=== PATIENT | male | born 1995 | race Hispanic/Latino ===

== ENCOUNTER 2018-01-14 22:10 | Emergency (ER) | payer BC ==
[2018-01-14] MEDS ORDERED: LIDOCAINE HCL 2% VISCOUS 15 ML UDCUP ONE (22:30)
[2018-01-14] MEDS ORDERED: MAG HYDROX/AL HYDROX/SIMETH ES 30 ML SUSP UDCUP ONE (22:30)
[2018-01-14] MEDS ORDERED: ACETAMINOPHEN-CODEINE ELIXIR 5 ML UDCUP ONE (22:31)
[2018-01-14] MEDS ORDERED: ONDANSETRON ODT 4 MG TAB ONE (22:31)
== END 2018-01-14 23:07 | disposition home or self-care (01) ==
LOC: EDH 22:10
DX: A08.4 Viral intestinal infection, unspecified (principal)

== ENCOUNTER 2024-05-17 10:05 | Emergency (ER) | payer SELFPAY ==
[~2024-05-17] VITALS: Ht 172.7 cm; Wt 54.4 kg
[2024-05-17 11:10] LABS: RAPID GROUP A STREP negative (NEGATIVE)
[2024-05-17 11:26] LABS: INFLUENZA TYPE A Negative For Type A (NEGATIVE); INFLUENZA TYPE B Negative For Type B (NEGATIVE)
[2024-05-17] MEDS ORDERED: AZIT500T2 PO (12:34)
[2024-05-17] MEDS ORDERED: ALBUHFA IH (12:34)
[2024-05-17] MEDS ORDERED: BENZ-39 PO (12:34)
[2024-05-17 12:41] VITALS: BP 124/56; PULSE 54; RESP 20; O2SAT 98
== END 2024-05-17 12:43 | disposition home or self-care (01) ==
LOC: EDH 10:05
DX: J20.8 Acute bronchitis due to other specified organisms (principal); B96.89 Other specified bacterial agents as the cause of diseases classified elsewhere; Z20.822 Contact with and (suspected) exposure to COVID-19
CPT/HCPCS: 71045; 87426; 87804; 87880

== ENCOUNTER 2024-08-02 07:37 | Emergency (ER) | payer BC ==
[~2024-08-02] VITALS: Ht 172.7 cm; Wt 54.4 kg
[~2024-08-02 07:37] MED LIST: ALBUHFA IH; AZIT500T2 PO; BENZ-39 PO
[2024-08-02 08:25] LABS: SARS-CoV-2, RNA, NAAT NEGATIVE SARS CoV-2 (NEGATIVE)
[2024-08-02 08:30] LABS: INFLUENZA TYPE B Negative For Type B (NEGATIVE)
[2024-08-02 08:36] LABS: INFLUENZA TYPE A Positive For Type A (NEGATIVE)
--- NOTE | 2024-08-02 09:07 | ERN ---
ED Note History of Present Illness Stated Complaint: COUGH, HEADACHE, BODYACHE Chief Complaint: Flu Symptoms Time Seen by MD: 08:16 Dictation: 28-year-old male presents to the ED for evaluation of headache onset 1 day ago. Patient reports cough and body aches, but denies any other associated symptoms at this time. Allergies: Coded Allergies: No Known Drug Allergies (Unverified Allergy, Unknown, 08/02/24) Home Meds Active Scripts Oseltamivir Phosphate (Tamiflu) 75 Mg Cap, 1 CAP PO BID for 5 Days, #10 CAP 0 Refills Prov:BENOIT MARTINEZ DO 08/02/24 Azithromycin (Zithromax Tri-Jean) 500 Mg Tablet, 500 MG PO DAILY, #5 TAB One tablet p.o. daily for five days Prov:ANA PIMENTEL NP 05/17/24 Benzonatate (Tessalon Perles) 100 Mg Cap, 200 MG PO TID for cough, #60 CAP 0 Refills Two capsules by mouth every8 hours as needed for cough Prov:ANA PIMENTEL NP 05/17/24 Albuterol Sulfate (Ventolin Hfa/Proventil Hfa/Proair Hfa) 90 Mcg Puff, 2 PUFF IH Q4H for WHEEZING, #1 INHALER 0 Refills Prov:ANA PMIENTEL NP 05/17/24 Past Medical History Past Medical History: No Pertinent History Surgical History: None Review of System Dictation Constitutional: Positive for body aches Negative for fever,chills, and weight loss Eyes: Negative for injury, pain,redness, and discharge ENT: Negative for injury,pain or swelling Cardiovascular: Negative for chest pain, palpitations, and edema Respiratory: Positive for cough Negative for shortness of breath and wheezing, Abdomen/GI: Negative for abdominal pain, nausea, vomiting, diarrhea, and constipation Back: Negative for injury and pain : Negative for injury, bleeding and discharge MS/Extremity: Negative for injury and deformity Skin: Negative for rash, and discoloration Neuro: Positive for headache Negative for weakness, numbness, tingling, and seizure Psych: Negative for suicide ideation, homicidal ideation, and hallucinations Initial Vital Sign VS Vital Signs Date Time Temp Pulse Resp B/P (MAP) Pulse Ox O2 Delivery O2 Flow Rate FiO2 08/02/24 07:37 98.8 100 14 115/71 97 Room Air 0 Physical Exam Dictation General: awake, alert, NAD Head/Face: Normocephalic, atraumatic Eyes: PERRL, EOMI, vision at baseline ENT: oral cavity clear, TMs clear, no signs of infection Neck: Trachea midline, supple, no nuchal rigidity Cardiovascular: RRR, normal S1/S2, No MRGs, no JVD Respiratory: CTAB, no respiratory distress, No rales or wheezes Abdomen: Soft, non-tender, non-distended, normal bowel sounds, no guarding or rebound. Skin: Warm, dry, normal turgor, no rash MS/Extremity: Pulses equal, no cyanosis, neurovascular intact, FROM Neuro: COAx4, GCS 15, strength 5/5, CN 2-12 intact, normal cerebellar exam, normal gait, Psych: Normal behavior, mood, and affect normal Results (Laboratory/Radiology) Laboratory/Radiology Laboratory Tests Test 08/02/24 07:48 Influenza Type A Antigen Positive For Type A Influenza Type B Antigen Negative For Type B SARS-CoV-2, RNA, NAAT NEGATIVE SARS CoV-2 Labs Reviewed?: Yes ED Course ED Course Orders Procedure Category Date Status Time Covid Rna Naat LAB 08/02/24 Complete 07:40 Influenza Type A & B, LAB 08/02/24 Complete Rapid 07:40 Vital Signs Date Time Temp Pulse Resp B/P (MAP) Pulse Ox O2 Delivery O2 Flow Rate FiO2 08/02/24 07:37 98.8 100 14 115/71 97 Room Air 0 Medical Decision Making MDM MDM: Differential diagnosis: Viral syndrome, influenza, COVID Previous outside records reviewed: Old ER visits. Need for hospitalization: Patient does not meet criteria for hospitalization. Need for emergency major/minor surgery: No Patient's prior external medical records from other ER visits were reviewed by me as indicated. Prior testing and results from previous visits were reviewed. Prior tests were taken into account with medical decision making and resource utilization, independent historian/historians were used to obtain complete medical history. I independently interpreted the test that were performed, results were reviewed by me and considered findings on radiology if ordered. Medical management and examination interpretation discussions were had by me with other qualified healthcare professionals as indicated for the patient's care. CC: Flu-like symptoms Historian: Patient Comorbidities: None Limitations by social determinants of health: None Differential diagnosis: Flu, viral URI Vital signs stable Clinical exam is unremarkable. Clear lung signs, nontoxic in appearance. P.o. tolerant. Patient has a positive for influenza A. Consistent with symptoms. We will recommend OTC meds, we will give him prescription for Tamiflu. DX & DISP Disposition: Discharge Departure Impression: Primary Impression: Influenza A Condition: Stable Scripts Oseltamivir Phosphate (Tamiflu) 75 Mg Cap 1 CAP PO BID for 5 Days, #10 CAP 0 Refills Prov: BENOIT MARTINEZ DO 08/02/24 Additional Instructions: You tested positive for influenza a, or the flu. As we discussed, I have prescribed Tamiflu. Take as prescribed. I recommend you take [id number] cold and flu medications such as DayQuil or Mucinex. You can also take Tylenol or ibuprofen. Drink plenty of liquids Please follow up with your primary doctor if you continue with symptoms. Return to the emergency department as needed. Referrals: SELF,REFERRAL (PCP) I have reviewed, & agreed with my scribe's, documentation. (Entered by Kathrin Pereira, acting as a scribe for Dr. Martinez) I personally scribed for BENOIT MARTINEZ DO (TRUMAN) on 08/02/24 at 09:07. Electronically submitted by Kathrin Pereira ([email or web address]). BENOIT MARTINEZ DO Aug 02, 2024 09:07
[2024-08-02] MEDS ORDERED: OSEL75 PO (09:10)
[2024-08-02 09:30] VITALS: BP 112/70; PULSE 89; RESP 14; TEMP 98.8; O2SAT 100
== END 2024-08-02 09:34 | disposition home or self-care (01) ==
LOC: EDH 07:37
DX: J10.1 Influenza due to other identified influenza virus with other respiratory manifestations (principal); Z20.822 Contact with and (suspected) exposure to COVID-19; Z79.899 Other long term (current) drug therapy
CPT/HCPCS: 87635; 87804; 99283

== ENCOUNTER 2024-12-10 16:58 | Emergency (ER) | payer OTHER, BC ==
[~2024-12-10] VITALS: Ht 172.7 cm; Wt 65.8 kg
[~2024-12-10 16:58] MED LIST changes: +OSEL75 PO
--- NOTE | 2024-12-10 17:10 | NUR ---
C-COLLAR APPLIED WHILE IN TRIAGE
--- NOTE | 2024-12-10 17:15 | NUR ---
SEE TRAUMA FLOW SHEET
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
[2024-12-10] MEDS ORDERED: IOHEXOL 350 MG/ML 100ML INFUS..BTL IV ONE (17:29)
[2024-12-10 17:32] LABS: BASOPHILS # (AUTO) 0.03 K/uL (0.00-0.20); BASOPHILS % (AUTO) 0.4 % (0.0-5.0); EOSINOPHILS # (AUTO) 0.05 K/uL (0.00-0.70); EOSINOPHILS % (AUTO) 0.7 % (0.0-8.0); HEMATOCRIT 45.1 % (42-54); IMMATURE GRANULOCYTE ABSOLUTE 0.03 K/uL (0-1); LYMPHOCYTES # (AUTO) 1.9 K/uL (1.0-4.8); LYMPHOCYTES % (AUTO) 28.1 % (21.0-51.0); MEAN CORPUSCULAR HGB CONC 34.4 g/dL (32.0-36.0); MEAN CORPUSCULAR VOLUME 87.2 fL (79-99); MONOCYTES # (AUTO) 0.5 K/uL (0.1-1.0); MONOCYTES % (AUTO) 7.5 % (3.0-13.0); NEUTROPHILS # (AUTO) 4.2 K/uL (1.8-7.7); NEUTROPHILS % (AUTO) 62.9 % (40.0-77.0); PLATELET COUNT (AUTO) 171 K/uL (130-400); RED BLOOD CELL COUNT(AUTO) 5.17 MIL/uL (4.50-6.20); WHITE BLOOD COUNT (AUTO) 6.7 K/uL (4.8-10.8)
[2024-12-10 17:42] LABS: CREATININE 0.9 mg/dL (0.5-1.3); POTASSIUM 3.7 mmol/L (3.5-5.1)
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
[2024-12-10] MEDS ORDERED: CYCL5TAB3 PO (18:19)
[2024-12-10] MEDS: ketOROlac 30MG VIAL (30MG/ML) IVP ONE (18:36)
[2024-12-10] MEDS: CYCLOBENZAPRINE HCL 10 MG TABLET PO ONE (18:36)
[2024-12-10 18:40] VITALS: BP 133/48; PULSE 81; RESP 20; TEMP 98.4; O2SAT 99
== END 2024-12-10 18:40 | disposition home or self-care (01) ==
LOC: EDH 16:58
DX: S20.219A Contusion of unspecified front wall of thorax, initial encounter (principal); R51.9 Headache, unspecified; M54.2 Cervicalgia; V43.52XA Car driver injured in collision with other type car in traffic accident, initial encounter; Y93.89 Activity, other specified; Y92.488 Other paved roadways as the place of occurrence of the external cause; Y99.8 Other external cause status
CPT/HCPCS: 99285; 70450; 96374; 80048; 85025; 36415; 72125; 71260; 74177; J1885; Q9967

== ENCOUNTER 2025-09-14 15:11 | Emergency (ER) | payer BC ==
[~2025-09-14] VITALS: Ht 172.7 cm; Wt 65.8 kg
[~2025-09-14 15:11] MED LIST changes: +CYCL5TAB3 PO
[2025-09-14 15:12] VITALS: BP 134/72; PULSE 70; RESP 18; TEMP 98
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
[2025-09-14] MEDS ORDERED: FLUORESCEIN SODIUM 1 STRIP STRIP OP ONE (16:00)
[2025-09-14] MEDS ORDERED: TETRACAINE HCL 0.5% 4 ML OPHTH SOLN OP ONE (16:00)
== END 2025-09-14 17:19 | disposition left against medical advice (07) ==
LOC: EDH 15:11
DX: T15.91XA Foreign body on external eye, part unspecified, right eye, initial encounter (principal); Z53.29 Procedure and treatment not carried out because of patient's decision for other reasons; X58.XXXA Exposure to other specified factors, initial encounter; Y93.89 Activity, other specified; Y92.89 Other specified places as the place of occurrence of the external cause; Y99.8 Other external cause status
CPT/HCPCS: 99282